=== PATIENT | female | born 1990 | race Caucasian/White ===

== ENCOUNTER 2018-12-20 13:24 | Emergency (ER) | payer OTHER, MEDICAID ==
[~2018-12-20] VITALS: Ht 149.9 cm; Wt 104.3 kg
[2018-12-20] MEDS ORDERED: CLONAZEPAM 1 MG1 M1 PO (13:37)
[2018-12-20] MEDS ORDERED: DEPAKOTE125 MG PO (13:38)
[2018-12-20] MEDS ORDERED: ADDERALL 10 MG10 MG PO (13:38)
[2018-12-20 13:47] LABS: ICTOTEST (BILI CONFIRMATORY) Positive (Negative); URINE CLARITY SL HAZY
[2018-12-20 13:59] LABS: ABSOLUTE BASOPHILS 0.1 thou/uL (0.0-0.2); ABSOLUTE EOSINOPHILS 0.4 thou/uL (0.0-0.7); ABSOLUTE LYMPHOCYTES 1.8 thou/uL (0.8-5.3); ABSOLUTE MONOCYTES 0.6 thou/uL (0.0-1.2); ABSOLUTE NEUTROPHILS 6.5 thou/uL (1.6-8.1); BASOPHILS 0.6 %; EOSINOPHILS 3.8 %; HEMATOCRIT 43.5 % (37.0-47.0); HEMOGLOBIN 13.9 gm/dL (12.0-15.0); LYMPHOCYTES 19.3 %; MCH 29.7 pg (26.0-34.0); MCV 92.9 fL (80.0-100.0); MONOCYTES 6.8 %; MPV 10.6 fl. (7.2-11.1); NUCLEATED RBCS 0 /100WBC; PLATELET COUNT* 225 thou/uL (150-400); POLYS 69.5 %; RBC 4.68 mil/uL (4.20-5.00); RDW-CV 14.6 % (10.5-14.5); WBC 9.4 thou/uL (4.0-11.0)
[2018-12-20 13:59] LABS: ACETEST (KETONE CONFIRMATORY) Negative (Negative); URINE COLOR ORANGE
[2018-12-20 14:02] LABS: URINE SPECIFIC GRAVITY 1.026 (1.005-1.030)
[2018-12-20 14:05] LABS: SQUAMOUS 4-10 Moderate /LPF (0-3); URINE WBC-REFLEX >25 Many /HPF (0-5)
[2018-12-20 14:06] LABS: URINE RBC None Seen /HPF (0-2)
[2018-12-20 14:07] LABS: CASTS None Seen /LPF (None Seen); CRYSTALS None Seen /LPF (None Seen)
[2018-12-20 14:10] LABS: CALCIUM 8.5 mg/dL (8.5-10.1); CREATININE 0.8 mg/dL (0.6-1.3); POTASSIUM 3.6 mmol/L (3.5-5.1)
[2018-12-20 14:15] LABS: ALBUMIN 3.6 g/dL (3.4-5.0); TOTAL BILIRUBIN 0.3 mg/dL (<0.1-1.0); TOTAL PROTEIN 6.9 g/dL (6.4-8.2)
[2018-12-20] MEDS ORDERED: BACTRIM DS TAB1 EACH PO (15:02)
[2018-12-20] MEDS ORDERED: NAPROSYN500 MG PO (15:04)
[2018-12-20 15:25] VITALS: BP 137/84
== END 2018-12-20 15:26 | disposition home or self-care (01) ==
LOC: M.ERS 13:24
PROVIDERS: Physician Assistant
DX: N39.0 Urinary tract infection, site not specified (principal); Z98.51 Tubal ligation status; Z88.0 Allergy status to penicillin; Z91.040 Latex allergy status

== ENCOUNTER 2019-02-05 21:17 | Emergency (ER) | payer OTHER ==
[~2019-02-05 21:17] MED LIST: ADDERALL 10 MG10 MG PO; BACTRIM DS TAB1 EACH PO; CLONAZEPAM 1 MG1 M1 PO; DEPAKOTE125 MG PO; NAPROSYN500 MG PO
[2019-02-05 21:42] LABS: URINE BILIRUBIN NEGATIVE (Negative); URINE BLOOD 1+ (Negative); URINE CLARITY CLEAR; URINE COLOR YELLOW; URINE GLUCOSE-RANDOM NEGATIVE (Negative); URINE KETONES NEGATIVE (Negative); URINE LEUKOCYTES-REFLEX NEGATIVE (Negative); URINE NITRITE-REFLEX NEGATIVE (Negative); URINE PROTEIN NEGATIVE (Negative); URINE SPECIFIC GRAVITY 1.025 (1.005-1.030); URINE UROBILINOGEN 0.2 E.U./dl (0.2-1.0)
[2019-02-05 21:48] LABS: CASTS None Seen /LPF (None Seen); CRYSTALS None Seen /LPF (None Seen); MUCUS None Seen strn/LPF (None Seen); SQUAMOUS >10 Many /LPF (0-3)
[2019-02-05 21:49] LABS: BACTERIA-REFLEX 1-9 Few /HPF (None Seen)
[2019-02-05 21:50] LABS: URINE RBC 0-2 Rare /HPF (0-2); URINE WBC-REFLEX 0-5 Rare /HPF (0-5)
[2019-02-05] MEDS ORDERED: DIFLUCAN150 MG PO (22:00)
[2019-02-05] MEDS ORDERED: FLAGYL500 M1 PO (22:00)
[2019-02-05 22:45] VITALS: BP 125/86
== END 2019-02-05 22:45 | disposition home or self-care (01) ==
LOC: M.ERS 21:17
PROVIDERS: Family Medicine
DX: N76.0 Acute vaginitis (principal); B96.89 Other specified bacterial agents as the cause of diseases classified elsewhere; F41.9 Anxiety disorder, unspecified; F31.9 Bipolar disorder, unspecified; J45.909 Unspecified asthma, uncomplicated; Z91.040 Latex allergy status; Z88.0 Allergy status to penicillin